=== PATIENT | female | born 1945 | race Caucasian/White ===

== ENCOUNTER → 2016-11-05 | Outpatient (CLI) | payer MEDICARE ==
[~2016-11-05] MED LIST: AMLO5TAB2 PO; ASPI325T PO; Aspirin Ec PO; HYDR-3516 PO; HYZA100T2 PO; LEVO75TA3 PO; LOSA50TA PO; TOPA50TA7 PO
[2016-11-05 14:17] LABS: AUTOMATED NEUTROPHIL # 4.1 TH/MM3 (1.8-7.7); BASOPHIL % 0.6 % (0.0-2.0); EOSINOPHIL # 0.1 TH/MM3 (0-0.4); EOSINOPHIL % 1.8 % (0.0-4.0); HEMO FLAGS DIFF FINAL; LYMPH % 26.5 % (9.0-44.0); LYMPHOCYTE # 1.7 TH/MM3 (1.0-4.8); MEAN CELL VOLUME 81.6 FL (80.0-100.0); MEAN CORPUSCULAR HEMOGLOBIN 25.7 PG (27.0-34.0); MEAN CORPUSCULAR HGB CONC 31.5 % (32.0-36.0); MONO % 6.4 % (0.0-8.0); NEUT % 64.7 % (16.0-70.0); PLATELET COUNT 293 TH/MM3 (150-450); RED BLOOD COUNT 4.42 MIL/MM3 (4.00-5.30); RED CELL DISTRIBUTION WIDTH 17.3 % (11.6-17.2); WHITE BLOOD COUNT 6.4 TH/MM3 (4.0-11.0)
[2016-11-05 14:34] LABS: BLOOD, URINE NEG (NEG); COMMENT (UR) CULT NOT INDICATED; CULTURE IF INDICATED CULT NOT INDICATED; GLUCOSE,URINE NEG (NEG); KETONE, URINE NEG (NEG); MUCUS URINE FEW /lpf (OCC); NITRITE,URINE NEG (NEG); PH, URINE 7.5 (5.0-8.5); SQUAMOUS EPITHELIAL CELL URINE <1 /hpf (0-5); URINE COLOR YELLOW (YELLW/STRAW)
[2016-11-05 14:53] LABS: ALT (GPT) 19 U/L (10-53); ANION GAP 7 MEQ/L (5-15); AST (GOT) 17 U/L (15-37); BICARBONATE 23.6 MEQ/L (21.0-32.0); BLOOD UREA NITROGEN 15 MG/DL (7-18); CHLORIDE 111 MEQ/L (98-107); GLOMERULAR FILTRATION RATE 57 ML/MIN (>89); GLUCOSE,FASTING 76 MG/DL (74-99); POTASSIUM 4.4 MEQ/L (3.5-5.1); SODIUM (NA) 142 MEQ/L (136-145)
[2016-11-05 14:56] LABS: ALKALINE PHOSPHATASE 64 U/L (45-117); TOTAL BILIRUBIN ADULT 1.1 MG/DL (0.2-1.0)
--- NOTE | 2016-11-05 15:02 | RADRPT ---
EXAM DATE/TIME: 11/05/2016 14:38 [facility] COMPARISON: No previous studies available for comparison. INDICATIONS : Evaluate for penumonia, pneumothorax, or communicable disease. Pre op for right shoulder replacement. MEDICAL HISTORY : Osteoarthritis. Hypertension Thyroid disease. TB. Esophageal ulcers. SURGICAL HISTORY : Gastric bypass. Hysterectomy. Bilateral knee replacements, Left hip replacement, Left shoulder repla cement. ENCOUNTER: Initial ACUITY: 1 day PAIN SCORE: 0/10 LOCATION: chest FINDINGS: PA and lateral views of the chest demonstrate the lungs to be symmetrically aerated without evidence of mass, infiltrate or effusion. The cardiomediastinal contours are unremarkable. Aortic valve calc ifications. Osseous structures are intact. CONCLUSION: No acute disease. Jayden Delcid MD FACR on November 05, 2016 at 15:00 Board Certified Radiologist. This report was verified electronically.
--- NOTE | 2016-11-05 18:37 | EKG ---
Date Performed: 11/05/2016 Time Performed: 14:22:52 PTAGE: 71 years EKG: Sinus rhythm POSSIBLE LEFT ATRIAL ENLARGEMENT SEPTAL MYOCARDIAL INFARCTION, OF INDETERMINATE AGE ABNORMAL ECG Com pared to prior electrocardiogram, Septal infarct pattern is present. This could be changes due to ac d placement and cliinical correlattion is suggested. DOCTOR: Elijah Patino Interpretating Date/Time 11/05/2016 18:35:48
== END ==
LOC: CPRE 13:14
PROVIDERS: ATTEND Orthopaedic Surgery
DX: Z01.810 Encounter for preprocedural cardiovascular examination (principal); Z01.811 Encounter for preprocedural respiratory examination; Z01.812 Encounter for preprocedural laboratory examination; M19.011 Primary osteoarthritis, right shoulder; R94.31 Abnormal electrocardiogram [ECG] [EKG]
CPT/HCPCS: 36415; 71020; 80053; 81001; 85025; 93005

== ENCOUNTER 2016-11-10 05:25 | Inpatient (IN) | payer MEDICARE ==
[~2016-11-10] VITALS: Ht 152.4 cm; Wt 72.8 kg
[~2016-11-10 05:25] MED LIST changes: -AMLO5TAB2 PO; -Aspirin Ec PO; -HYZA100T2 PO
[2016-11-10] MEDS ORDERED: LACTATED RINGER'S 1000 ML IV PRN (06:00)
[2016-11-10] MEDS ORDERED: POVIDONE IODINE 5% (ANTISEPSIS KIT) 4 APPLICATIONS EACH NARE PRN (06:00)
[2016-11-10] MEDS ORDERED: SODIUM CHLORID 0.9% 500 ML IV PRN (06:00)
[2016-11-10] MEDS ORDERED: METOPROLOL TARTRATE 25 MG TAB PO PRN (06:00)
[2016-11-10] MEDS ORDERED: CLINDAMYCIN 900 MG/NS 100 ML IV SCH ×2 (06:00)
[2016-11-10] MEDS ORDERED: CHLORHEXIDINE GLUCONATE 2 % 1 PACK (2 CLOTHS) TOPICAL PRN (06:00)
[2016-11-10] MEDS ORDERED: INSULIN HUMAN REGULAR 1,000 UNITS/10 ML VIAL SQ PRN (06:00)
[2016-11-10] MEDS ORDERED: VANCOMYCIN 1000 MG/NS 250 ML (for <70 kg) IV SCH ×2 (06:00)
[2016-11-10] MEDS ORDERED: POVIDONE IODINE 7.5% SCRUB 118 ML BOTTLE TOPICAL SCH (06:00)
[2016-11-10] MEDS ORDERED: SODIUM CHLORIDE 0.9% INJ 100 ML ONE (06:16)
[2016-11-10] MEDS ORDERED: TOBRAMYCIN SULFATE 1200 MG VIAL ONE (06:21)
[2016-11-10] MEDS ORDERED: GENTAMICIN SULFATE 80 MG/2 ML VIAL ONE (06:21)
[2016-11-10] MEDS ORDERED: EPINEPHrine HCL (1:1000) 1 MG/ML VIAL ONE (07:19)
[2016-11-10] MEDS ORDERED: ACETAMINOPHEN 1000 MG/100 ML 100 ML IV ONE (07:29)
[2016-11-10] MEDS ORDERED: FAMOTIDINE 20 MG/2 ML VIAL ONE (07:30)
[2016-11-10] MEDS ORDERED: ARTIFICIAL TEARS OPTH OINT 3.5 APPLIC/3.5 GM TUBO ONE (07:30)
[2016-11-10] MEDS ORDERED: BUPIVACAINE HCL PF 0.5% 30 ML VIAL NERV BLOCK ONE (09:26)
[2016-11-10] MEDS ORDERED: HYDR-3516 PO (11:57)
[2016-11-10] MEDS ORDERED: SODIUM CHLORIDE 0.9% FLUSH 5 ML FLUSH IVF PRN (12:00)
[2016-11-10] MEDS ORDERED: ONDANSETRON HCL 4 MG/2 ML VIAL IVP PRN (12:00)
[2016-11-10] MEDS ORDERED: traMADol HCL 50 MG TAB PO PRN (12:00)
[2016-11-10] MEDS ORDERED: MAGNESIUM HYDROXIDE SUSP 30 ML CUP PO PRN (12:00)
[2016-11-10] MEDS ORDERED: HYDROmorphone HCL PF 2 MG/ML VIAL IV PRN (12:00)
[2016-11-10] MEDS ORDERED: NALOXONE HCL 0.4 MG/ML AMP IV PRN (12:00)
[2016-11-10] MEDS ORDERED: ACETAMINOPHEN/HYDROcodone 325 MG/5 MG TAB PO PRN (12:00)
[2016-11-10] MEDS ORDERED: diphenhydrAMINE HCL 50 MG/ML VIAL IV PRN (12:00)
[2016-11-10] MEDS ORDERED: Post-op Orders (for Pharmacy) MISC XX ONE (12:00)
[2016-11-10] MEDS ORDERED: PROMETHAZINE HCL 25 MG TAB PO PRN (12:00)
--- NOTE | 2016-11-10 12:00 | HHI.FF ---
Face to Face Verification Diagnosis: (1) Status post total replacement of right shoulder Occupational Therapy Right UE Weight Bearing: Non WB Right UE Range of Motion: Pendular Nursing Nursing: Dressing changes Dressing Changes: Daily dressing change, Coverderm/Primapore I have seen patient Hanna Duarte on 11/10/16. My clinical findings support the need for the requested home health care services because: Limited ability to care for self I certify that my clinical findings support that this patient is homebound because: Unsafe to leave home unassisted Unable to use public transportation Ede Ngo MD Nov 10, 2016 12:00
[2016-11-10] MEDS ORDERED: DO NOT ADM ANY ANTICOAGULANT DRUGS PRN (12:04)
[2016-11-10] MEDS: DEXT 5%-NACL 0.9% 1000 ML INJ 1,000 ML IV SCH (13:00)
[2016-11-10] MEDS: KETOROLAC TROMETHAMINE 30 MG/ML (IVP) VIAL IVP SCH ×2 (13:17→20:00)
--- NOTE | 2016-11-10 13:30 | RADRPT ---
EXAM DATE/TIME: 11/10/2016 12:31 [facility] COMPARISON: No previous studies available for comparison. INDICATIONS : Post op right total shoulder. MEDICAL HISTORY : Osteoarthritis. Hypertension Thyroid disease. TB. Esophageal ulcers. SURGICAL HISTORY : Gastric bypass. Hysterectomy. Bilateral knee replacements, Left hip ENCOUNTER: Initial ACUITY: 1 day PAIN SCORE: 0/10 LOCATION: Right Shoulder FINDINGS: Total shoulder in good position in anatomic alignment without fracture. CONCLUSION: Anatomic alignment.. Jayden Delcid MD FACR on November 10, 2016 at 13:28 Board Certified Radiologist. This report was verified electronically.
[2016-11-10] MEDS: CLINDAMYCIN INJ 900 MG in SODIUM CHLORIDE 0.9% INJ 100 ML IV SCH (15:00)
[2016-11-10 15:30] VITALS: BP 100/66; PULSE 85; RESP 18; TEMP 96.5; O2SAT 97
--- NOTE | 2016-11-10 16:15 | MP ---
cc: MABEL NGO DATE OF SURGERY 11/10/2016 PREOPERATIVE DIAGNOSIS Osteoarthritis right shoulder. POSTOPERATIVE DIAGNOSIS Osteoarthritis right shoulder. OPERATIVE PROCEDURE Total shoulder arthroplasty using DJO components as follows; Glenoid 42 mm with central peg and three peripheral pegs cemented. Head 42 x 20 mm and stem [address] Ngo. ANESTHESIA General. TECHNIQUE After induction of general anesthesia the anesthesiologist proceeded to inject a scalene block followed by positioning on the beach-chair positioner with head and neck properly secured and properly positioned and the torso properly position and she was placed in beach-chair position and the vital signs were found to be stable at which point the right shoulder thoroughly prepped with alcohol and ChloraPrep and draped in routine fashion including adherent drapes. A standard deltopectoral incision was made. The cephalic vein retracted with the deltoid and deltopectoral interval was defined, bursa was dissected, a clav elevator was used to dissect around the head of the humerus with overlying rotator cuff. Arm was externally rotated. The subscapularis identified and the circumflex vessels of this lower margin wide identified, clamped and cauterized. A ink marker was used to [place] the subscapularis at the medial aspect of where it was cauterized to limit our dissection medially. Biceps tendon sheath was opened, biceps tenotomy was carried out as proximally as we could and then the biceps was pulled proximally and anchored to pectoralis major tendon with #2 Vicryl sutures. The lesser tuberosity osteotomy was carried out and we got a nice sliver of bone with it. This way the subscapularis was elevated. Osteotomy of the head was carried out following routine technique with the use of the appropriate guide. Osteophytes were being excised from the neck of the humerus prior to the osteotomy keeping the arm externally rotated and protecting soft tissue. The glenoid now exposed. Dissection carried out between the subscapularis and inferior capsule and the inferior capsule was then excised from the part of that inferior capsule and was dissected all the way to the glenoid. Anterior labrum was excised, residual biceps tendon excised, the inferior capsule recessed from the glenoid and the posterior capsule also recessed from the glenoid getting good exposure. The appropriate guide was used to put the drill guide for the DJO new shoulder system followed by using the cutout reamers. The anchoring holes were then placed with the appropriate guide and once the holes were made this guide was removed and I find that we are rotated clockwise about 10 degrees with the posterior inferior hole quite shallow. There is no accommodation to the change these holes and therefore we accepted. The glenoid component was cemented. This was encountered carefully and we encountered difficulty in doing this and the first two attempts were unsuccessful because of the inability to properly rotate the glenoid component to fit into these anchoring holes because of the rotation of the anchoring holes. At any rate we finally cemented in place and it firmly cemented and anchored. All excess cement was removed. It should be mentioned here that the cement was placed in the anchoring holes for the pegs. A solution of dilute epinephrine and thrombin was used to control the bleeding. Once the glenoid was solidified the humerus was extracted out and then the canal was repaired using canal finders, broaches 8 mm broach. Three holes were made lateral to the bed of the lesser tuberosity and looped #5 sutures were passed through and held with hemostats. Bone graft was placed in the canal proximally and the stem was impacted in place. A 16 x 42 head was used but it looked like I needed a little more neck length and therefore a 20 x 42 head was used and everything looks good. The trial head was removed. The actual head was impacted in place and reduced. There was good stability. There was good alignment of the glenohumeral joint and good range of motion. Wound was irrigated with saline solution followed by reattachment of the lesser tuberosity with the looped #5 sutures in a rack and hitch fashion getting excellent reduction of that excellent fixation. Rotator cuff interval was closed with #2 FiberWire. The deltopectoral interval closed with a #2 quill with a Hemovac drain in the submuscular space. Subcutaneous tissue was closed with 2-0 Vicryl, skin with 3-0 Stratafix and Steri-Strips. Dressing was applied with Xeroform, 4x4s, ABD, Medipore tape followed by application of sling and swath and transferred the patient in satisfactory condition to the recovery room. The patient tolerated the procedure well. TRANSFUSION None. COMPLICATIONS None. POSTOPERATIVE CONDITION Satisfactory. PROGNOSIS Good. MD MARK Dickerson/TEJAS /12:07 PM /3:35 PM
[2016-11-10] MEDS ORDERED: VANCOMYCIN INJ 1,000 MG in SODIUM CHLOR 0.9% 250 ML INJ 250 ML IV SCH (19:00)
[2016-11-10 20:20] VITALS: BP 100/62; PULSE 84; RESP 18; TEMP 96.5; O2SAT 99
[2016-11-10] MEDS: SODIUM CHLORIDE 0.9% FLUSH 5 ML FLUSH IVF SCH (21:00)
[2016-11-10] MEDS ORDERED: ZOLPIDEM TARTRATE 5 MG TAB PO PRN (21:00)
[2016-11-10 23:20] VITALS: BP 94/59; PULSE 87; RESP 17; TEMP 96.8; O2SAT 98
[2016-11-11] MEDS ORDERED: ACETAMINOPHEN 1000 MG/100 ML VIAL IV SCH
[2016-11-11] MEDS: CLINDAMYCIN INJ 900 MG in SODIUM CHLORIDE 0.9% INJ 100 ML IV SCH ×2 (00:11→06:17)
[2016-11-11] MEDS: DEXT 5%-NACL 0.9% 1000 ML INJ 1,000 ML IV SCH (00:12)
[2016-11-11] MEDS: KETOROLAC TROMETHAMINE 30 MG/ML (IVP) VIAL IVP SCH (04:00)
[2016-11-11 04:05] VITALS: BP 111/68; PULSE 90; RESP 16; TEMP 97; O2SAT 99
[2016-11-11] MEDS ORDERED: LEVOTHYROXINE SODIUM 75 MCG TAB PO SCH (06:00)
[2016-11-11 07:03] LABS: HEMATOCRIT 24.6 % (35.0-46.0); REVIEW FLAG FINAL
[2016-11-11 07:23] LABS: BICARBONATE 23.2 MEQ/L (21.0-32.0); POTASSIUM 3.6 MEQ/L (3.5-5.1)
--- NOTE | 2016-11-11 07:37 | PD.ORT.PN ---
Subjective Post Op Day #: 1 Pain Scale: 1 Subjective Remarks has been to bathroom, block just starting to wear off. Objective Vitals Last 72 hours Impressions Shoulder X-Ray 11/10/16 0000 Signed Impressions: Service Date/Time: Thursday, November 10, 2016 12:31 - CONCLUSION: Anatomic alignment.. Jayden Delcid MD FACR Vital Signs Date Time Temp Pulse Resp B/P (MAP) Pulse Ox O2 Delivery O2 Flow Rate FiO2 11/11/16 04:05 97.0 90 16 111/68 (82) 99 11/10/16 23:20 96.8 87 17 94/59 (71) 98 11/10/16 20:20 96.5 84 18 100/62 (75) 99 11/10/16 15:30 96.5 85 18 100/66 (77) 97 11/10/16 15:00 85 12 105/60 (75) 97 Room Air 11/10/16 13:00 98.0 85 12 103/63 (76) 97 Room Air 11/10/16 12:45 82 12 103/59 (74) 96 Room Air 11/10/16 12:30 86 15 106/58 (74) 96 Room Air 11/10/16 12:15 86 15 106/61 (76) 98 Room Air 11/10/16 12:02 98.2 92 13 136/63 (87) 97 Room Air I/O 11/10/16 11/10/16 11/10/16 11/11/16 11/11/16 11/11/16 07:00 15:00 23:00 07:00 15:00 23:00 Intake Total 1776 ml 440 ml 480 ml Output Total 2395 ml 80 ml Balance -619 ml 360 ml 480 ml Intake Oral 440 ml 480 ml IV Total 1776 ml Output Urine Total 300 ml Drainage Total 45 ml 80 ml Estimated Blood Loss 50 ml Other 2000 ml # Voids 1 2 3 # Bowel Movements 0 0 Result Diagram: 11/11/16 0649 11/11/16 0649 Objective Remarks In bed, comfortable , S & son, radial puse good, moves fingers and flexes elbow well. Drsgs and drain present Assessment & Plan Ortho Post Op Day #: 1 Problem List: Assessment and Plan Satisfactory post op TSA Hct down. she has iron at home and she will start taking it DC today after drsg change, ambulate etc. Dc instructions given. Rx Hydrocodone, FU one week, to call for apptt. [facility] for wound care. Ede Ngo MD Nov 11, 2016 07:37
[2016-11-11 08:00] VITALS: BP 111/67; PULSE 78; RESP 18; TEMP 96.2; O2SAT 100
[2016-11-11] MEDS ORDERED: TOPIRAMATE 25 MG TAB PO SCH (09:00)
[2016-11-11] MEDS: SODIUM CHLORIDE 0.9% FLUSH 5 ML FLUSH IVF SCH (09:00)
[2016-11-11] MEDS ORDERED: LOSARTAN 50 MG TAB PO SCH (09:00)
[2016-11-11] MEDS ORDERED: ASPIRIN 325 MG TAB PO SCH (09:00)
[2016-11-11] MEDS ORDERED: INFLUENZA VIRUS VACCINE (QUADRIVALENT) 0.5 ML SYR IM ONE (10:00)
[2016-11-11] MEDS ORDERED: PNEUMOCOCCAL POLYVALENT INJ 25 MCG/0.5 ML SYR IM ONE (10:00)
[2016-11-11 12:00] VITALS: BP 111/68; PULSE 86; RESP 18; TEMP 97.4; O2SAT 99
[2016-11-11] MEDS ORDERED: DOCUSATE SODIUM 100 MG CAP PO SCH (21:00)
== END 2016-11-11 13:44 | disposition home health service (06) | DRG 483 ==
LOC: HSDI 05:25 → N06B 15:12
PROVIDERS: ADMIT Orthopaedic Surgery; ATTEND Orthopaedic Surgery
PROC: 0LS30ZZ Reposition Right Upper Arm Tendon, Open Approach (ICD-10-PCS; 2016-11-10)
PROC: 0RRJ0JZ Replacement of Right Shoulder Joint with Synthetic Substitute, Open Approach (ICD-10-PCS; principal; 2016-11-10 07:32)
DX: M19.011 Primary osteoarthritis, right shoulder (principal); Z96.653 Presence of artificial knee joint, bilateral; Z98.84 Bariatric surgery status; Z90.710 Acquired absence of both cervix and uterus
CPT/HCPCS: 73030; 80048; 85014; 85018; C1776; J0131; J0171; J1580; J1885; J3260; J3370; J7042; J7050; J7120